=== PATIENT | male | born 1945 | race Caucasian/White ===

== ENCOUNTER → 2021-08-14 11:29 | Outpatient (BNVA) | payer BC, SELFPAY | PROVIDERS: PCP Internal Medicine; Visit Provider Nurse Practitioner Family | DX: G20 Parkinson's disease (principal); G47.33 Obstructive sleep apnea (adult) (pediatric); G47.52 REM sleep behavior disorder; Z79.899 Other long term (current) drug therapy | CPT/HCPCS: 99212 ==

== ENCOUNTER → 2022-09-17 11:23 | Outpatient (BNVA) | payer BC, SELFPAY | PROVIDERS: PCP Internal Medicine; Visit Provider Nurse Practitioner Family | DX: Z13.89 Encounter for screening for other disorder (principal) ==

== ENCOUNTER 2022-12-10 10:50 | Outpatient (AMB) | payer MEDICARE, SELFPAY ==
--- NOTE | 2022-12-10 11:00 | MHC.OFFVIS ---
Intake Vital Signs 12/10/22 11:03 Weight 160 lb 6 oz BP 140/92 H Blood Pressure Location Lt brachial Position Sitting Pulse 67 Pulse Source Pulse Oximeter Pulse Oximetry (%) 97 Oxygen Delivery Method Room Air Intake Visit Reasons: follow up Intake Note: F/U Parkinson Instructional Technology Coordinator Required: No Allergies No Known Allergies Allergy (Verified 12/10/22 11:01) Medication List - Last Reconciled 12/10/22 by LINDA Yeh amlodipine 5 mg PO DAILY carbidopa-levodopa 25-100 mg 2 tabs PO QID 90 days lisinopril 10 mg PO DAILY metformin ER 500 mg PO .three times a day simvastatin 20 mg PO BEDTIME HPI HPI Comments History of Present Illness Details 77-yr-old male presents for urgent f/u visit, accompanied by his . Pt reports about 6-8 weeks ago, he began having more lower back and hip pains and spasms, as well as more difficulty walking. He saw his PCP- who tried him on muscle relaxants and referred him to PT- PD BIG program- which helped to some degree but not fully. Pt's current PD medication regimen: CD-LD 25-100mg- 2 tabs qid- 7am, 12pm, 6pm, 9-10pm. Eats at 8:30-9am, may do a snack for lunch, dinner 5-5:30pm. Do medication effects last between doses: Not always ADL's: Ind w/ shower chair and grab bars. Added a ramp from the garage into the house. Orthostatic lightheadedness: Not recently Freezing: He has been noticing this since he started PT- more difficulty getting started Stiffness: More stiffness Tremor: More tremor in mid-morning- after not taking his meds through the night Falls: None Hallucinations: None PFSH Surgical History No pertinent past surgical history Social History (Updated 12/10/22 @ 11:03 by Jocelyn Velez CMA) Household Members: Spouse Alcohol intake: current Alcohol intake frequency: 0-2 drinks per day Alcohol type: wine Patient Tobacco Use Status: Never used Tobacco Use of substances other than those prescribed or required for medical reasons: No Current occupational status: retired Review of Systems Const All systems reviewed & are unremarkable except as noted in HPI and below Physical Exam Vital Signs: Last Vital Signs Pulse 67 12/10/22 11:03 BP 140/92 H 12/10/22 11:03 Pulse Ox 97 12/10/22 11:03 Oxygen Delivery Method Room Air 12/10/22 11:03 Const General: cooperative and no acute distress Resp Effort & Inspection: normal respiratory effort and able to speak in complete sentences Neuro Other: Anterocollis. Expression:? Decreased expression and blink Voice:? Soft voice Tremor:? Bilateral upper extremity rest tremor Tone:? Bilateral upper extremity tone FFM:? Bilateral upper extremity mild bradykinesia Foot taps:? Bilateral lower extremity bradykinesia Gait:? Slow to stand, anterocllis, stooped, no arm swing, with shorter steps and low floor clearance, multiple steps to turn, steady w/ walker. Psych:? Pleasant affect General: patient oriented x3 Assessment & Plan Assessment & Plan (1) Parkinson's disease: Code(s): G20 - Parkinson's disease (2) Back pain: Code(s): M54.9 - Dorsalgia, unspecified (3) Hip pain: Code(s): M25.559 - Pain in unspecified hip Plan Discussed that pt's low back pain, hip pain, BLE cramps/spasms and gait changes may be multi-factorial w/ Parkinson's and musculoskeletal components. Adjust CD-LD 25-100mg to 2 tabs qid- at 7am, 11am, 3pm, and 7pm Add CD-LD ER 50-200mg qhs. Above changes in hopes of improving gait, decreasing LE pain/spasms/cramps. Reviewed possible ADRs- OH, hallucinations, dyskinesias, GI s/s. Resume recently learned PT stretching and BIG exercises at home. Pt to call me w/in next 2 weeks w/ update. Future consideration- resuming PT- home vs out-pt. in-clinic f/u in Mar as scheduled. Medications: New carbidopa-levodopa 50-200 mg ER at 10pm 1 tab PO BEDTIME 90 days 90 tabs 1RF Changed From carbidopa-levodopa 25-100 mg 2 tabs PO QID 90 days 720 tabs 3RF To carbidopa-levodopa 25-100 mg at 7am, 11am, 3pm, 7pm 2 tabs PO QID 90 days 720 tabs 3RF Coding Level of Care Code Est Pt Level 4 (49163) Diagnoses Parkinson's disease G20 Back pain M54.9 Hip pain M25.559
[2022-12-10 11:03] VITALS: BP 140/92; PULSE 67; O2SAT 97
== END 2022-12-10 12:08 | disposition home or self-care (01) ==
LOC: HO.HSMS 10:50
PROVIDERS: PCP Internal Medicine; Visit Provider Nurse Practitioner Family
DX: G20 Parkinson's disease (principal); M54.9 Dorsalgia, unspecified; M25.559 Pain in unspecified hip
CPT/HCPCS: 99214

== ENCOUNTER → 2022-12-10 10:50 | Outpatient (BNVA) | payer BC, SELFPAY | PROVIDERS: PCP Internal Medicine; Visit Provider Nurse Practitioner Family | DX: G20 Parkinson's disease (principal); M54.9 Dorsalgia, unspecified; M25.559 Pain in unspecified hip; Z79.899 Other long term (current) drug therapy | CPT/HCPCS: 99212 ==

== ENCOUNTER 2023-03-23 11:32 | Outpatient (AMB) | payer BC, SELFPAY ==
[2023-03-23 11:36] VITALS: BP 122/64; PULSE 54; O2SAT 100; BMI 22.7
--- NOTE | 2023-03-23 11:36 | A.OFFVIS_ITS ---
Intake Vital Signs 03/23/23 11:36 Height 5 ft 10 in Weight 158 lb 2 oz BMI 22.7 BP 122/64 Blood Pressure Location Rt brachial Position Sitting Pulse 54 Pulse Source Pulse Oximeter Pulse Oximetry (%) 100 Oxygen Delivery Method Room Air Intake Visit Reasons: 6M follow up Parkinson's-Confirmed Intake Note: Patient presents for 6 month follow up parkinson's. Patient states no issues to report justb the same old stuff. Allergies No Known Allergies Allergy (Verified 03/23/23 11:40) Medication List - Last Reconciled 03/23/23 by LINDA Yeh amlodipine 5 mg PO DAILY carbidopa-levodopa 25-100 mg 2 tabs PO QID 90 days carbidopa-levodopa 50-200 mg ER 1 tab PO BEDTIME 90 days lisinopril 10 mg PO DAILY metformin ER 500 mg PO .three times a day simvastatin 20 mg PO BEDTIME tramadol 50 mg PO TID PRN HPI HPI Comments History of Present Illness Details 78-yr-old male presents for f/u visit, a ccompanied by his . Since, the last visit, he has been seeing PS&S for low back apin, muscle spasms in his thighs/buttockes, and LE cramping. He has had lumbar injections and PT. He states that sometimes these interventions have helped and other time not as much. His cyclobenzaprine was stopped, and he was started on Tramadol- which does seem to help better. Pain management raised the possibility of lumbar ablation. However, Dr Huynh, has advised him to hold until until he can a have a hematology consult to further evaluate anemia and ? multiple myeloma. Pt's current PD medication regimen: CD-LD IR 25-100mg 2 tabs qid and CD-LD ER 50-200mg qhs. Do medication effects last between doses: No Pt states that the adjustment to his CD-LD dosing at the last visit was helpful. He is not noticing any wearing off, especially at night. Tremor is better controlled. Can be stiff and slow if sitting in one place for too long. Pt denies any OH s/s No hallucinations No constipation PFSH Surgical History No pertinent past surgical history Social History Household Members: Spouse Alcohol intake: current Alcohol intake frequency: 0-2 drinks per day Alcohol type: wine Patient Tobacco Use Status: Never used Tobacco Current occupational status: retired Review of Systems Const All systems reviewed & are unremarkable except as noted in HPI and below Physical Exam Vital Signs: Last Vital Signs Pulse 54 03/23/23 11:36 BP 122/64 03/23/23 11:36 Pulse Ox 100 03/23/23 11:36 Oxygen Delivery Method Room Air 03/23/23 11:36 BMI result Body Mass Index 22.7 Const General: cooperative and no acute distress Resp Effort & Inspection: normal respiratory effort and able to speak in complete sentences Neuro Other: Anterocollis. Expression:? Decreased expression and blink Voice:? Soft voice Tremor:? Bilateral R > L upper extremity rest tremor, and spread of movement from right foot taps to RUE rest tremor Tone:? Bilateral R > L upper extremity tone FFM:? Bilateral upper extremity mild bradykinesia Foot taps:? Bilateral lower extremity bradykinesia Gait:? Slow to stand, anterocllis, stooped, no arm swing, with short steps and low floor clearance, steady w/ walker. Psych:? Pleasant affect General: patient oriented x3 Assessment & Plan Assessment & Plan (1) Parkinson's disease without dyskinesia: Code(s): G20.A1 - Parkinson's disease without dyskinesia, without mention of fluctuations (2) Back pain: Code(s): M54.9 - Dorsalgia, unspecified (3) Hip pain: Code(s): M25.559 - Pain in unspecified hip Plan Reviewed recent notes and labs from Dr Huynh. Continue Tramadol per Dr Huynh and f/u w/ PS&S as scheduled. Continue CD-LD 25-100mg to 2 tabs qid- at 7am, 11am, 3pm, and 7pm Continue CD-LD ER 50-200mg qhs. Try adding OTC Magnesium 400-500mg qhs- for cramping. Try low-med setting heating pad/blanket x's 20 minutes prn at home Continue PT stretching and BIG exercises at home. f/u in 4 months or sooner prn. Coding Level of Care Code Est Pt Level 4 (99308) Diagnoses Parkinson's disease without dyskinesia G20.A1 Back pain M54.9 Hip pain M25.551
== END 2023-03-23 12:20 | disposition home or self-care (01) ==
PROVIDERS: Visit Provider Nurse Practitioner Family
DX: G20.A1 Parkinson's disease without dyskinesia, without mention of fluctuations (principal); M54.9 Dorsalgia, unspecified; M25.559 Pain in unspecified hip
CPT/HCPCS: 99214

== ENCOUNTER → 2023-03-23 11:32 | Outpatient (BNVA) | payer BC, SELFPAY | PROVIDERS: Visit Provider Nurse Practitioner Family ==

== ENCOUNTER → 2023-08-04 11:09 | Outpatient (BNVA) | payer BC, SELFPAY | PROVIDERS: PCP Internal Medicine; Visit Provider Nurse Practitioner Family ==

== ENCOUNTER 2023-08-04 11:10 | Outpatient (AMB) | payer BC, SELFPAY ==
--- NOTE | 2023-08-04 11:44 | MHC.OFFVIS ---
Intake Vital Signs 08/04/23 11:48 Height 5 ft 10 in Weight 158 lb BMI 22.7 Pulse 64 Pulse Source Pulse Oximeter Pulse Oximetry (%) 100 Oxygen Delivery Method Room Air Intake Visit Reasons: f/u for parkinsons-Conf Intake Note: Patient presents for follow up parkinson's. more than ever,I don't move very well and have a lot of pains in my hips and back Allergies No Known Allergies Allergy (Verified 08/04/23 11:49) Medication List - Last Reconciled 08/04/23 by LINDA Yeh amlodipine 5 mg PO DAILY carbidopa-levodopa 25-100 mg 2 tabs PO QID 90 days carbidopa-levodopa 50-200 mg ER 1 tab PO BEDTIME 90 days lisinopril 10 mg PO DAILY metformin ER 500 mg PO .three times a day simvastatin 20 mg PO BEDTIME tramadol 50 mg PO TID PRN HPI HPI Comments History of Present Illness Details 78-yr-old male presents for f/u visit, accompanied by by his . In Apr 2023, pt had [facility] admission to assess for low back bolaños, fecal incontinence, urinary changes, and increased BLE weakness. Work-up was not c/w cauda equina. Fecal incontinence, Proctocolitis, Stercoral colitis, UTI- improved on discharge, bowel regimen optimized. Abnormal L-spine MRI and MGUS (monoclonal gammopathy of unknown significance)- Pt was seen by hematology- did not feel there were any lumbar changes c/w myeloma, infection, or inflammation. Pt was seen by both neurosurgery- no intervention was advised. Pt to f/u w/ hematology and PS&S. 04/11/23, L-spine MRI MRI- Multifocal signal abnormality involving the L1-L4 vertebral bodies with enhancement, as well as prevertebral soft tissue thickening, and enhancing soft tissue posterior to the L3 level. The imaging pattern is nonspecific with relative sparing of the disc spaces. Differential includes discitis/osteomyelitis in the appropriate clinical setting, but could also reflect posttraumatic BSMC, changes, inflammatory process, or less likely metastasis. This requires correlation with clinical presentation and history, and with laboratory/clinical markers of infection/inflammation. There is no organized fluid collection. Multilevel degenerative changes with severe spinal canal stenosis at the L2-L3 and L3-L4 levels and very degrees of moderate to severe neural foraminal stenosis from L2-L3 through L5-S1. Upon discharge, he had in-pt rehab at [facility], and was discharged home w/ home PT. His primary concern today is ongoing low back and hip pain and stiffness.. He feels the low back pain causes LE pains and leg spasms at times. Has BLE weakness. He denies LE numbness. He states one of his PTs advised him to see a neurosurgeon in [place], however he does not think he can travel that far. He wonders if back surgery could be helpful. Pt states his PD is overall stable. No bothersome tremor. Denies neck pain. No falls. Can be slow. States his bed mobility is ok- able to get up a few times each night to use the bathroom. Denies orthostatoc lightheadedness. Denies hallucinations. Not much physical activity. Pt's current PD medication regimen: CD-LD IR 25-100mg 2 tabs qid and CD-LD ER 50-200mg qhs. [facility] Medical History (Updated 08/04/23 @ 21:06 by LINDA Yeh) Parkinson's disease Surgical History No pertinent past surgical history Social History Household Members: Spouse Alcohol intake: current Alcohol intake frequency: 0-2 drinks per day Alcohol type: wine Patient Tobacco Use Status: Never used Tobacco Current occupational status: retired Review of Systems Const All systems reviewed & are unremarkable except as noted in HPI and below Physical Exam Vital Signs: Last Vital Signs Pulse 64 08/04/23 11:48 Pulse Ox 100 08/04/23 11:48 Oxygen Delivery Method Room Air 08/04/23 11:48 BMI result Body Mass Index 22.7 Const General: cooperative and no acute distress Resp Effort & Inspection: normal respiratory effort and able to speak in complete sentences Neuro Other: General: patient oriented x3 Posture: Anterocollis. Expression:? Decreased expression and blink Voice:? Soft voice Tremor:? Bilateral R > L upper extremity mild rest tremor, and spread of movement from right foot taps to RUE rest tremor Tone:? Bilateral R > L upper extremity tone FFM:? Bilateral upper extremity mild bradykinesia Foot taps:? Bilateral lower extremity bradykinesia Gait:? Slow to stand, anterocollis, stooped, no arm swing, with short steps and low floor clearance, steady w/ walker. Psych:? Pleasant affect MS- BLE 3+/5 Bilateral Patellar DTRs- dulled BLE- edema, discoloration- chronic Assessment & Plan Assessment & Plan (1) Parkinson's disease without dyskinesia: Code(s): G20.A1 - Parkinson's disease without dyskinesia, without mention of fluctuations (2) Back pain: Code(s): M54.9 - Dorsalgia, unspecified (3) Lumbar canal stenosis: Code(s): M48.061 - Spinal stenosis, lumbar region without neurogenic claudication (4) Neuroforaminal stenosis of lumbar spine: Code(s): M48.061 - Spinal stenosis, lumbar region without neurogenic claudication Plan Reviewed recent notes and work-up from Dr Huynh and PS&S. Continue Tramadol per Dr Huynh and f/u w/ PS&S as scheduled. Will request neurosurgery consult- for eval of chronic low back and hip pain which is limiting pt's mobility. Continue CD-LD 25-100mg to 2 tabs qid- at 7am, 11am, 3pm, and 7pm Continue CD-LD ER 50-200mg qhs. Try adding OTC Magnesium 400-500mg qhs- for cramping. f/u in 3-4 months or sooner prn. Orders: Referrals Neuro Spine Referral G20.A1 - Parkinson's disease without dyskinesia, without mention of fluctuations, M25.559 - Pain in unspecified hip, M48.061 - Spinal stenosis, lumbar region without neurogenic claudication, M54.9 - Dorsalgia, unspecified Medications: New magnesium oxide may hold for loose stools 400 mg PO BEDTIME 30 tabs 6RF 30 days Refilled carbidopa-levodopa 50-200 mg ER at 10pm 1 tab PO BEDTIME 90 tabs 3RF 90 days carbidopa-levodopa 25-100 mg at 7am, 11am, 3pm, 7pm 2 tabs PO QID 720 tabs 3RF 90 days Coding Level of Care Code Est Pt Level 4 (05372) Diagnoses Parkinson's disease without dyskinesia G20.A1 Back pain M54.9 Lumbar canal stenosis M48.061 Neuroforaminal stenosis of lumbar spine M48.066
[2023-08-04 11:48] VITALS: PULSE 64; O2SAT 100; BMI 22.7
== END 2023-08-04 12:45 | disposition home or self-care (01) ==
PROVIDERS: PCP Internal Medicine; Visit Provider Nurse Practitioner Family
DX: G20.A1 Parkinson's disease without dyskinesia, without mention of fluctuations (principal); M54.9 Dorsalgia, unspecified; M48.061 Spinal stenosis, lumbar region without neurogenic claudication
CPT/HCPCS: 99214

== ENCOUNTER 2023-08-18 12:41 | Outpatient (AMB) | payer BC, SELFPAY ==
--- NOTE | 2023-08-18 13:02 | HO.SPINEOV ---
Intake Intake Visit Reasons: low back pain Intake Note: Mr. Rendon is here today c/o Low back pain. Incident Engineer Required: No Allergies No Known Allergies Allergy (Verified 08/04/23 11:49) Assessment & Plan Assessment & Plan (1) Neuroforaminal stenosis of lumbar spine: Code(s): M48.061 - Spinal stenosis, lumbar region without neurogenic claudication Plan Filippo is a pleasant 78 y/o male who was self referred to our practice after continued low back pain despite recently attempting physical therapy. He states that his main complaint is severe axial low back pain that is well localized to his lumbar spine. He reports he has tried physical therapy which he found was not helpful. He also has been to [facility] for cortisone injections in the lumbar spine, which he also reported was not helpful. He has tried many [id number] medications, and is currently taking prescribed tramadol to help regulate his pain with only modest relief. He feels that this problem has slowly worsened over the course of many years, and can not identify any initial inciting incident. He does state that sometime in September of 2022 he felt his low back pain intensify quite significantly which caused him to seek medical help for this issue. He states that he has no issues with walking, and feels as though walking helps to alleviate his pain. He is unable to walk for significant distances but states this is because any activity will cause him increased low back pain. He does not report that laying down provides anymore significant relief than standing / walking. PMH: Parkinson's, HTN, HLD, T2DM (last A1C: 6) Social hx: Patient does not smoke, reports no substance use. Medications: Amlodipine, carbidopa levodopa, lisinopril, magnesium, metformin, simvastatin, tramadol. Allergies: NKDA. Physical exam: The patient has 4/5 strength with knee extension and hip flexion bilaterally. His sensation is grossly intact. His reflexes are 2+ intact. The patient ambulates with the assistance of a walker. He moves very slowly. He rises from a seated position very slowly with the assistance of the chair. (-) straight leg raise, (-) Patterson's, (-) clonus. Imaging review: MRI of the lumbar spine shows diffuse spondylosis of the lumbar spine. There is severe central canal stenosis and bilateral foraminal stenosis at L3-4 and L4-5. There is also a grade 1 spondylolithesis at L2-3. Impression: Filippo is a pleasant 78-year-old male who comes in today with a chief complaint of severe axial low back pain. He states this has been ongoing for years, and became worse in September of 2022. He has trialed physical therapy and cortisone injections with no significant relief. He is currently on opiate pain medication to help mitigate his symptoms. He has seeking a solution in order to permanently address this issue. We discussed the severe stenosis that is shown in his lumbar spine, and also discussed the evidence of listhesis in his lumbar spine. Both of these could be potential etiologies of his pain. I informed him that I would like to send him for a set of flexion/extension x-rays in order to better evaluate for any instability in his spine. I will review his MRI, history, and x-rays with Dr. Hicks during our clinic hours tomorrow, then call to update the patient. We did briefly discuss the possibility of what a L3-5 decompression would entail, and I explained what a lumbar fusion to address lithesis is as well. Thank you for allowing us to care for your patient. The total time spent with this visit with this patient was 45 minutes reviewing history, physical exam, MRI imaging review, and implementation of treatment plan or further diagnostic testing Omid Hicks MD,PhD [facility] Orders: Orders XR lumbar spine 4V min Today M48.061 - Spinal stenosis, lumbar region without neurogenic claudication Coding Level of Care Code New Pt Level 4 (83118) Diagnoses Neuroforaminal stenosis of lumbar spine M48.061
== END 2023-08-18 14:13 | disposition home or self-care (01) ==
PROVIDERS: PCP Internal Medicine; Referring Provider Nurse Practitioner Family; Visit Provider Physician Assistant
DX: M48.061 Spinal stenosis, lumbar region without neurogenic claudication (principal)
CPT/HCPCS: 99204

== ENCOUNTER 2023-08-18 12:41 | Outpatient (REF) | payer BC, SELFPAY ==
--- NOTE | ~2023-08-18 | XR_ITS ---
EXAMINATION: XR LUMBOSACRAL SPINE WITH OBLIQUES CLINICAL INFORMATION: Spinal stenosis lumbar region without neurogenic claudication. COMPARISON: None available. TECHNIQUE: AP, lateral neutral, flexion and extension views of the lumbar spine. FINDINGS: Radiopaque electronic pack overlies the medial right hemidiaphragm. Atherosclerotic aortic calcifications. Large amount of stool and overlying bowel limit visualization. Bones are diffusely demineralized. Degenerative changes in the bilateral sacroiliac joints and imaged right hip. Facet arthritis in the mid to lower lumbar spine. Degenerative changes in the imaged lower thoracic spine. Mild levoscoliosis of the lumbar spine. Advanced multilevel lumbar spondylosis with multilevel loss of disc space height most notable at L2-L3, L3-L4 and L4-L5. Grade 1 retrolisthesis of L1 on L2, L2 on L3 and L3 on L4. XR/XR lumbar spine 4V min IMPRESSION: Advanced multilevel lumbar spondylosis.
== END 2023-08-18 12:42 | disposition home or self-care (01) ==
LOC: HO.HOSX 12:41
PROVIDERS: PCP Internal Medicine; Visit Provider Physician Assistant
DX: M48.061 Spinal stenosis, lumbar region without neurogenic claudication (principal)
CPT/HCPCS: 72110

== ENCOUNTER 2023-09-07 11:18 | Day surgery (SDC) | payer MEDICARE, SELFPAY ==
--- NOTE | ~2023-09-07 | CT_ITS ---
PROCEDURE: CT GUIDED BIOPSY, BONE CLINICAL INFORMATION: Suspicious bone lesions. COMPARISON: MRI outside institution 04/11/2023 TECHNIQUE/FINDINGS: Medications for conscious sedation: The patient received intravenous conscious sedation under my direct supervision. A registered nurse monitored the patient and the patient's vital signs throughout the procedure. The total sedation was 28 minutes. Versed and fentanyl given for good effect. This CT examination was performed using dose optimization techniques as appropriate, variously including the following: *Automated exposure control *Adjustment of mA and/or kV according to patient size (this includes techniques or standardized protocols for targeted exams where dose is matched to indication/reason for exam; i.e. extremities or head) *Use of iterative reconstruction technique DLP: 340 mGy-cm Images through the lower lumbar spine obtained. A site on the lower back was selected, marked and sterilely prepped and draped. 1% lidocaine administered for local anesthesia. The L5 vertebral body lesion was accessed with a trocar needle utilizing a transpedicular approach. Samples were obtained and sent for requested studies. The needle was removed. Post biopsy images do not demonstrate any evidence of hemorrhage or other complication. CT/CT biopsy bone superficial IMPRESSION: L5 vertebral body lesion biopsy.
[2023-09-07 12:15] LABS: Prothrombin Time 11.7 SEC (11.1-13.3)
[2023-09-07 12:16] VITALS: BMI 22.7
[2023-09-07 12:27] LABS: Glucose, Whole Blood 103 mg/dL (60-115)
--- NOTE | 2023-09-07 13:02 | MHC.SHP ---
Pre-Procedural Eval Section A - 24 Hr Update-Section A only Date of Service: 09/07/23 Section B - Complete if H&P > 30 days Chief Complaint: SUSPICIOUS LESION LUMBAR SPINE Details of Present Illness: Abnormal MRI, concern for osteomyelitis vs malignancy Relevant Family History (Specify if Yes): No Relevant Social History: None Present Medications: see Short Stay Collaborative assessment Medical History: Significant History (lumbar stenosis) History of Previous Operations: No relevant previous surgery Allergies: Allergies Allergy/AdvReac Type Severity Reaction Status Date / Time No Known Allergies Allergy Verified 08/04/23 11:49 Review of Systems Sugical H&P ROS: Negative: Constitution and Yes, Specify: Musculoskeletal (back pain) Exam Surgical H&P Exam: Normal: Lungs, Normal: Skin and Normal: Neurological (TOLLIVER x 4), Not Evaluated: HEENT and Significant Findings: Heart (bradycardic, regular rhythm ) Plan Diagnosis/Plan: Unchanged I have reviewed the history and physical and performed a pertinent physical examination on my patient. No changes have occurred unless specified. Time Spent With Patient Time: Total time managing care of this patient today ____ minutes.
[2023-09-07 14:10] VITALS: BP 121/63; PULSE 60; RESP 16; TEMP 36.8; O2SAT 99
[2023-09-07 14:25] VITALS: BP 114/67; PULSE 62; RESP 18; TEMP 36.7; O2SAT 99
[2023-09-07 14:40] VITALS: BP 121/60; PULSE 68; RESP 17; TEMP 36.7; O2SAT 99
== END 2023-09-07 15:16 | disposition home or self-care (01) ==
PROVIDERS: Physician Assistant Surgical; Student in an Organized Health Care Education/Training Program; PCP Internal Medicine; Visit Provider Physician Assistant
DX: M89.9 Disorder of bone, unspecified (principal); M54.50 Low back pain, unspecified; M48.061 Spinal stenosis, lumbar region without neurogenic claudication; M43.16 Spondylolisthesis, lumbar region; G20.A1 Parkinson's disease without dyskinesia, without mention of fluctuations; I10 Essential (primary) hypertension; E78.5 Hyperlipidemia, unspecified; E11.9 Type 2 diabetes mellitus without complications; Z79.84 Long term (current) use of oral hypoglycemic drugs; Z79.899 Other long term (current) drug therapy; Z99.89 Dependence on other enabling machines and devices
CPT/HCPCS: 20220; 36415; 77012; 82947; 85610; 88307; 88311; 88341; 88342; 99152; J2250; J2310; J3010

== ENCOUNTER → 2023-09-07 12:45 | Outpatient (BNV) | payer MEDICARE, SELFPAY | PROVIDERS: PCP Internal Medicine; Visit Provider Student in an Organized Health Care Education/Training Program | DX: M89.9 Disorder of bone, unspecified (principal) | CPT/HCPCS: 20220; 77012 ==

== ENCOUNTER 2023-09-26 10:30 | Outpatient (REF) | payer MEDICARE, SELFPAY ==
--- NOTE | ~2023-09-26 | MR_ITS ---
EXAMINATION: MR LUMBAR SPINE WITHOUT CONTRAST CLINICAL INFORMATION: Low back pain, greater on the right COMPARISON: Outside MRI 04/11/2023 TECHNIQUE: MRI of the lumbar spine was obtained using routine sequences without the administration of intravenous contrast. FINDINGS: This examination assumes the presence of 5 lumbar type vertebral bodies. For the purposes of this examination, the L5-S1 intervertebral disc space is visualized on axial series 9 image 23. Exaggeration of the normal lumbar lordosis. Levocurvature of the lower lumbar spine with dextrocurvature of the upper lumbar spine. Retrolisthesis of L1-L2, L2-L3, L3-L4 with grade 1 anterolisthesis of L5-S1. There is diffusely heterogeneous background marrow signal. Extensive marrow edema extending from T12 through L4-5. This is most prominent at the levels of L2-L3 and L3-L4 with extension into the bilateral pedicles and posterior elements. The conus medullaris is normal in signal intensity and terminates at the level of L1. T12-L1: Disc bulge. Facet arthropathy. The spinal canal and neural foramen are not significantly narrowed. L1-L2: Retrolisthesis and a disc bulge with osteophytic ridging. Facet arthropathy with ligamentum flavum redundancy. The spinal canal is patent. Mild narrowing of the neural foramen. L2-L3: Disc bulge and osteophytic ridging which is eccentric to the left extending into left neural foramen and far lateral space. Superimposed left subarticular disc extrusion with superior extension. Facet arthropathy with ligamentum flavum redundancy. There is stable severe spinal canal stenosis with crowding of the cauda equina nerve roots and nerve root redundancy superior to this level. Stable moderate to severe narrowing of the bilateral neural foramen with exiting nerve root compression in the foramen and far lateral spaces. L3-L4: Disc bulge and osteophytic ridging with facet arthropathy and ligamentum flavum redundancy. Severe spinal canal stenosis with mass effect on the cauda equina nerve roots. Severe bilateral neural foraminal stenosis with exiting nerve root compression appears comparable to the prior examination. L4-L5: Disc bulge/osteophytic ridging with facet arthropathy ligamentum flavum redundancy. Mild spinal canal stenosis with narrowing of the lateral recesses. Mass effect on the descending L5 nerve roots appears comparable to prior. Stable moderate narrowing of the neural foramen with exiting nerve root impingement. L5-S1: Advanced facet arthropathy. Disc bulge with central disc protrusion. Mild spinal canal stenosis with narrowing the lateral recesses. Stable mild right greater left neural foraminal stenosis with approximation the exiting L5 nerve roots by advanced facet arthropathy. Partially visualized bilateral renal cysts. MR/MR lumbar spine wo con IMPRESSION: Advanced multilevel degenerative changes of the lumbar spine with severe spinal canal stenosis at L2-L3 and L3-L4 which appears comparable to the prior examination. Associated mass effect on the cauda equina nerve roots with nerve root redundancy appears comparable to prior. Advanced bilateral neural foraminal stenoses at L2-L3 and L3-L4 with exiting nerve root compression that appears stable. Diffusely heterogeneous background marrow signal is indeterminate. Correlation with laboratory values is recommended to exclude an underlying marrow replacing process. Advanced edema at multiple lumbar levels, likely on the basis of severe degenerative changes.
== END 2023-09-26 10:31 | disposition home or self-care (01) ==
LOC: HO.MRI 10:30
PROVIDERS: PCP Internal Medicine; Visit Provider Physician Assistant
DX: M89.9 Disorder of bone, unspecified (principal); M54.50 Low back pain, unspecified
CPT/HCPCS: 72148

== ENCOUNTER 2023-11-04 13:33 | Outpatient (AMB) | payer MEDICARE, SELFPAY ==
--- NOTE | 2023-11-04 13:35 | HO.SPINEOV ---
Intake Visit Reasons: follow up Intake Note: Mr. Rendon is here today for a F/u. Education And Training Manager Required: No Allergies No Known Allergies Allergy (Verified 08/04/23 11:49) Assessment & Plan Assessment & Plan (1) Spinal stenosis: Code(s): M48.00 - Spinal stenosis, site unspecified Category: Medical Plan Today Araceli comes in for a subsequent follow visit after having lab work completed, a bone biopsy, and a subsequent MRI completed. To recap araceli was seen by pain management and had cortisone injection in the lumbar spine completed. He also completed a course of physical therapy. These were not helpful to resolve his symptoms. He initially was referred to us for severe axial low back pain, but after much discussion he seems much more concerned with the waxing/waning cramps that he gets in his leg which he states are the true cause of his difficulties with ambulation and strength. When describing his cramping he says that, ?without rhyme or reason? and do not worsened at all with walking or standing. They are just as bad as when he is sitting or lying down. Initially we had thought there was a possibility that lumbar fusion could help resolve his problem, however if his primary pain generator and cause for difficulties with ambulation are more likely related to his parkinsonian cramps / muscle spasms. He does have severe stenosis in the lumbar spine from L3-4 to L4-5, but this would not explain the symptoms he is disclosing. He does not report a radicular type pain that is shooting in nature and is quick in onset. He also does not report resolution of symptoms with hunching over or resting. When discussing his low back pain he states ?I could live with it? and does not seem to investigate having that portion addressed. He much more would like his cramping and rigidity symptoms to subside. After reviewing his lumbar CT scan, bone biopsy, laboratory work, and subsequent MRI imaging with the attending neurosurgeon Dr. Hicks, and evaluating the patient alongside Dr. Hicks, it was decided that Araceli is not a good surgical candidate at this time. We recommend he continue follow up with his provider that manages his Parkinson's disease and that he discuss optimization of his parkinson's medications. Total amount of time spent in this visit was 45 minutes in discussion of symptoms, MRI imaging results and subsequent plan of care Omid Hicks MD,PhD [facility] Coding Level of Care Code Est Pt Level 5 (86874) Diagnoses Spinal stenosis M48.00
== END 2023-11-04 14:37 | disposition home or self-care (01) ==
PROVIDERS: PCP Internal Medicine; Visit Provider Physician Assistant
DX: M48.00 Spinal stenosis, site unspecified (principal); Z48.89 Encounter for other specified surgical aftercare
CPT/HCPCS: 99215

== ENCOUNTER → 2023-11-04 13:33 | Outpatient (BNVA) | payer MEDICARE, SELFPAY | PROVIDERS: PCP Internal Medicine; Visit Provider Physician Assistant | DX: M48.061 Spinal stenosis, lumbar region without neurogenic claudication (principal) | CPT/HCPCS: 99212 ==

== ENCOUNTER 2023-11-30 11:23 | Outpatient (AMB) | payer MEDICARE, SELFPAY ==
--- NOTE | 2023-11-30 11:38 | A.OFFVIS_ITS ---
Vital Signs 11/30/23 11:46 Weight 171 lb BP 124/88 Blood Pressure Location Rt brachial Position Sitting Pulse 68 Pulse Source Pulse Oximeter Pulse Oximetry (%) 100 Oxygen Delivery Method Room Air Intake Visit Reasons: 4 mo f/u Intake Note: Patient presents for 4 month follow up. patient still having a lot old pain in the back of legs to the butt. Allergies No Known Allergies Allergy (Verified 11/30/23 11:47) Medication List - Last Reconciled 11/30/23 by LINDA Yeh amlodipine 5 mg PO DAILY carbidopa-levodopa 25-100 mg 2 tabs PO QID 90 days carbidopa-levodopa 25-250 mg 1 tab PO QID 30 days carbidopa-levodopa 50-200 mg ER 1 tab PO BEDTIME 90 days diazepam 10 mg PO ONCE 1 day lisinopril 10 mg PO DAILY magnesium oxide 400 mg PO BEDTIME 30 days metformin ER 500 mg PO .three times a day simvastatin 20 mg PO BEDTIME tramadol 50 mg PO TID PRN HPI Comments Details: 78-yr-old male presents for f/u visit, accompanied by his and dtr, Kyra Pt denies any significant interval medical history changes. Pt's primary concerns are: He continues to have bilateral aching back pain and hamstring cramping and at the same he is having a freezing episode- when freezing he also feels twitches and tremors in his back and leg. He can have the cramping w/o the freezing. He is not sure if this is a low back/hip/spinal stenosis s/s or a PD s/s, or both. He denies calf cramping while walking. He usually is tighter and slower in the morning- for a few hours. Using a topical pain/cramp tx (uses different ones) and cannabis. He did see neurosurgery, however they did not feel he would be a good surgical candidate. Pt's current PD medication regimen: CD-LD 25-100mg 2 tabs qid- at 7am, 11am, 3pm, and 7pm CD-LD ER 50-200mg qhs. Mag 400mg qhs- not sure if it helps or not. Do medication effects last between doses: unsure ADL's: Needing assist Swallowing: none Drooling: very little Orthostatic lightheadedness: none Constipation: not much- using miralax and metamucil combo. Urinary symptoms: none Tremor: no more than usual Dyskinesia: none Stiffness: as above Gait changes: as above Freezing: as above Falls: none Mood: states it is ok- but can be frustrated. Hallucinations: denies Memory: a bit worse- but is doing ok Sleep: sleeps ok, but wakes up to void. Exercise: Just typical movement. Tries to do some stretching. [facility] Medical History (Updated 11/30/23 @ 13:41 by LINDA Yeh) Spinal stenosis Parkinson's disease Surgical History No pertinent past surgical history Social History Household Members: Spouse Alcohol intake: current Alcohol intake frequency: 0-2 drinks per day Alcohol type: wine Patient Tobacco Use Status: Never used Tobacco Current occupational status: retired Review of Systems Const All systems reviewed & are unremarkable except as noted in HPI and below Physical Exam Vital Signs: Last Vital Signs Pulse 68 11/30/23 11:46 BP 124/88 11/30/23 11:46 Pulse Ox 100 11/30/23 11:46 Oxygen Delivery Method Room Air 11/30/23 11:46 Const General: cooperative and no acute distress Resp Effort & Inspection: normal respiratory effort and able to speak in complete sentences Neuro Other: General: patient oriented x3 Posture: Anterocollis. Expression:? Decreased expression and blink Voice:? Soft voice Tremor:? Bilateral R > L upper extremity mild rest tremor. Tone:? Bilateral R > L upper extremity rigidity FFM:? Bilateral upper extremity bradykinesia Foot taps:? Bilateral lower extremity bradykinesia Gait:? Slow to stand, increased anterocollis and stoop, no arm swing, slow to stand and hesitation upon standing (pt states he is not sure if this is a PD freezing), with very short steps and low floor clearance, steady w/ walker. Psych:? Pleasant affect MS- BLE 5-/5 BLE- edema, discoloration- chronic Assessment & Plan Assessment & Plan (1) Parkinson's disease without dyskinesia: Code(s): G20.A1 - Parkinson's disease without dyskinesia, without mention of fluctuations Category: Medical (2) Spinal stenosis: Code(s): M48.00 - Spinal stenosis, site unspecified Category: Medical (3) Hip pain: Code(s): M25.559 - Pain in unspecified hip Category: Medical (4) Back pain: Code(s): M54.9 - Dorsalgia, unspecified Category: Medical (5) Muscle cramps: Code(s): R25.2 - Cramp and spasm Category: Medical Plan Continue Tramadol per Dr Huynh and f/u w/ PS&S as scheduled. Will try to optimize dopaminergic tx- in hopes this will improve the low back pain, hamstring cramps, freezing, stiffness. Increase CD-LD 25-100mg 2 tabs qid- at 7am, 11am, 3pm, and 7pm to CD-LD 25-250mg IR 1 tab qid. Continue CD-LD ER 50-200mg qhs. Continue OTC Magnesium 400-500mg qhs- for cramping. Future considerations- Trial increasing nocturnal CD-LD/Rytary, trying Gabapentin. Also consider referral to out-pt PT for myofascial release, massage, dry needling. will f/u w/ pt in 2 weeks, and f/u in-clinic in 3-6 months or sooner prn. Medications: New carbidopa-levodopa 25-250 mg Continue CD-LD ER 50-200mg qhs. 1 tab PO QID 30 days 120 tabs 3RF Scribe Plan - Not visible on output: Discussed importance of regular physical activity for management of PD s/s, such as walking, cycling, boxing. Discussed benefits of dopaminergic therapies, such as reduced tremor and improved motor symptoms. Discussed potential adverse effects of dopaminergic therapies, including but not limited to nause/GI upset, orthostatic lightheadedness, dyskineisas, sleepiness, hallucinations. Pt is advised to establish care with a artificial insemination technician due to slight increase risk of melanoma seen in patient's with Parkinson's disease. Coding Level of Care Code Est Pt Level 4 (37614) Complex EM visit Add On G2211 Diagnoses Parkinson's disease without dyskinesia G20.A1 Spinal stenosis M48.00 Hip pain M25.559 Back pain M54.9 Muscle cramps R25.2
[2023-11-30 11:46] VITALS: BP 124/88; PULSE 68; O2SAT 100
== END 2023-11-30 12:55 | disposition home or self-care (01) ==
PROVIDERS: PCP Internal Medicine; Visit Provider Nurse Practitioner Family
DX: G20.A1 Parkinson's disease without dyskinesia, without mention of fluctuations (principal); M48.00 Spinal stenosis, site unspecified; M54.9 Dorsalgia, unspecified; M25.559 Pain in unspecified hip; R25.2 Cramp and spasm
CPT/HCPCS: 99214; G2211

== ENCOUNTER → 2023-11-30 11:23 | Outpatient (BNVA) | payer MEDICARE, SELFPAY | PROVIDERS: PCP Internal Medicine; Visit Provider Nurse Practitioner Family | DX: G20.A1 Parkinson's disease without dyskinesia, without mention of fluctuations (principal); M48.00 Spinal stenosis, site unspecified; M25.559 Pain in unspecified hip | CPT/HCPCS: 99212 ==

== ENCOUNTER 2024-04-01 10:59 | Outpatient (AMB) | payer MEDICARE, SELFPAY ==
--- NOTE | 2024-04-01 10:59 | A.OFFVIS_ITS ---
Intake Visit Reasons: Follow up Intake Note: patient following up. Allergies No Known Allergies Allergy (Verified 04/01/24 11:01) Medication List - Last Reconciled 04/01/24 by LINDA Yeh amlodipine 5 mg PO DAILY carbidopa-levodopa 25-100 mg 2 tabs PO QID 90 days carbidopa-levodopa 25-250 mg 1 tab orally 5 x's per day; Continue CD-LD ER 50-20 0mg qhs. 30 days carbidopa-levodopa 50-200 mg ER 1 tab PO BEDTIME 90 days diazepam 10 mg PO ONCE 1 day lisinopril 10 mg PO DAILY magnesium oxide 400 mg PO BEDTIME 30 days metformin ER 500 mg PO .three times a day simvastatin 20 mg PO BEDTIME tramadol 50 mg PO TID PRN HPI Comments Details: 78-yr-old male presents for f/u visit telephone visit (as pt is unable to use [employer] technology), accompanied by his and dtr, Kyra Pt reports he was referred to a palliative care program, as he was having concerns about how he was going to mange his progression of his PD and pain symptoms. Dr Huynh has increased his pain medication to 1 tab tid- which is helping. However, if he has been sitting or sleeping for an extended time, then he has difficulty re-initiating movement d/t posterior leg tightness/cramps, hip and back tightness. He feels the most bothersome part of this is difficulty initiating the movement. He states that the current CD-LD ER 25-250mg 1 tab 5 x's per day, CD-LD ER 50- 200mg qhs, Mag 400mg qhs has had some benefit. A few weeks ago, he started trying to take the 1st am dose 1/2 hour before he gets OOB in the am, which has helped some to help him move around better in the am somewhat. Sttaes then he starts well after 9am and does well until 2pm, when he gets tired and needs a nap, after anap he is slower, and then gets a second wind later in the evening. ADL's: Needing assist- has a [employer] 3 mornings a week to help w/ showers, dressing. Needs most help when he wakes up and when he goes to bed. Swallowing: none Drooling: very little Orthostatic lightheadedness: none Constipation: managed w/ miralax and metamucil combo. Urinary symptoms: none Tremor: stable Dyskinesia: none Stiffness: as above Gait changes: as above Freezing: as above Falls: none Mood: as above Hallucinations: denies Memory issues: no more than age appropriate Sleep: sleeps ok, but wakes up to void. Exercise: Just typical movement during the day. PFSH Medical History Spinal stenosis Parkinson's disease Surgical History (Reviewed 04/01/24 @ 11: by CAMILA Cobos) No pertinent past surgical history Social History (Reviewed 04/01/24 @ 11: by CAMILA Cobos) Household Members: Spouse Alcohol intake: current Alcohol intake frequency: 0-2 drinks per day Alcohol type: wine Patient Tobacco Use Status: Never used Tobacco Current occupational status: retired Physical Exam Const General: cooperative and no acute distress Orientation/consciousness: patient oriented x3 Resp Effort & Inspection: normal respiratory effort and able to speak in complete sentences Neuro General: patient oriented x3 Cognition (Neuro): normal cognition Psych Mental Status: mental status grossly normal Affect: normal affect Attitude: cooperative Telehealth Telehealth Telehealth Platform: Telephone Location of provider rendering services: practice address Location of patient: address on file Patient Identification confirmed using: Name, : Yes Telehealth method: voice only Patient verbally consented to treatment: Yes Patient verbally consented to billing insurance company: Yes Patient informed of any privacy concerns related to visit: Yes Minutes spent on Phone/Video with Pt.: 25 Assessment & Plan Assessment & Plan (1) Parkinson's disease without dyskinesia: Code(s): G20.A1 - Parkinson's disease without dyskinesia, without mention of fluctuations Category: Medical (2) Muscle cramps: Code(s): R25.2 - Cramp and spasm Category: Medical Plan Continue Oxycodone regimen per Dr Huynh. Continue CD-LD 25-250mg IR 1 tab 5 x's per day- concur w/ taking 1st dose prior to getting OOB in am. Continue CD-LD ER 50-200mg qhs. Trial adding Ropinirole Er 2mg qhs- in hopes this reduces off-times and rigidity/bradykinesia. Continue OTC Magnesium 400mg qhs- for cramping. Palliative care f/u as planned. Previous trials- CD-LD IR 25-100mg- ineffective/had increased off- times/bradykinesia/rigidity. Future considerations- Rytary, Gabapentin. F/u in-clinic in 2 months or sooner prn. Medications: New ropinirole ER 2 mg PO BEDTIME 30 tabs 3RF 30 days Discontinued carbidopa-levodopa 25-100 mg at 7am, 11am, 3pm, 7pm Discontinued Reason: Doctor's Order 2 tabs PO QID 90 days 720 tabs 3RF Coding Level of Care Code Tele Est Pt Level 4 (80207) Diagnoses Parkinson's disease without dyskinesia G20.A1 Muscle cramps R25.2
== END 2024-04-01 12:23 | disposition home or self-care (01) ==
LOC: HO.HSMS 10:59
PROVIDERS: PCP Internal Medicine; Visit Provider Nurse Practitioner Family
DX: G20.A1 Parkinson's disease without dyskinesia, without mention of fluctuations (principal)
CPT/HCPCS: 99443

== ENCOUNTER → 2024-04-01 10:59 | Outpatient (BNVA) | payer MEDICARE, SELFPAY | PROVIDERS: PCP Internal Medicine; Visit Provider Nurse Practitioner Family ==